=== PATIENT | female | born 1970 | race Caucasian/White ===

== ENCOUNTER 2024-03-07 10:31 | Emergency (ER) | payer BC, SELFPAY ==
--- NOTE | ~2024-03-07 | XR_ITS ---
Clinical Indication: Chest pain PA and lateral views of the chest: Comparison: 11/24/2018 Findings: The lungs are clear, without evidence of focal consolidation or pleural effusion. Cardiome diastinal silhouette is within normal limits. Bones and soft tissues are unremarkable. Impression: Normal chest. Reviewed, dictated and finalized at location . Impression: Normal chest.
--- NOTE | 2024-03-07 10:33 | ECG_ITS ---
Test Date: 2024-03-07 10:36:24 Measurements Intervals [place] Rate: 85 P: 34 DE: 171 QRS: 32 QRSD: 88 T: 37 QT: 349 QTc: 415 Interpretive Statements SINUS RHYTHM CANNOT R/O SEPTAL INFARCT, AGE INDETERMINATE BASELINE ARTIFACT- III, V4-V5 ABNORMAL ECG No previous ECG available for comparison Electronically Signed On 03-07-2024 10:51:24 CDT by Broa Escamilla D.O.
[2024-03-07 10:39] VITALS: BP 133/87; PULSE 82; RESP 17; TEMP 36.4; O2SAT 98
[2024-03-07 10:55] LABS: Basophils Absolute Auto 0.1 K/mm3 (0.0-0.1); Basophils Percent Auto 0.8 % (0.2-1.2); Eosinophils Absolute Auto 0.2 K/mm3 (0-0.3); Eosinophils Percent Auto 2.3 % (0-4.4); Immature Granulocyte Absolute 0.05 K/mm3 (0.00-0.031); Immature Granulocyte Percent A 0.6 % (0-0.5); Lymphocytes Absolute Auto 1.41 K/mm3 (0.9-3.2); Lymphocytes Percent Auto 16.4 % (18.3-44.2); Mean Corpuscular HGB Conc 33.3 g/dl (32-36); Mean Corpuscular Hemoglobin 30.8 pg (26-34); Mean Corpuscular Volume 92.3 fl (80-100); Mean Platelet Volume 9.3 fl (7.4-10.4); Monocytes Absolute Auto 0.5 K/mm3 (0.1-0.6); Monocytes Percent Auto 5.8 % (2.6-8.5); Neutrophils Absolute Auto 6.4 K/mm3 (1.3-6.7); Neutrophils Percent Auto 74.1 % (45.5-73.1); Platelet Count Result 277 k/mm3 (150-375); Red Blood Count 4.55 M/mm3 (4.2-5.4); Red Cell Distribution Width 12.9 % (11.5-14.5); White Blood Count 8.6 K/mm3 (4.5-10.0)
[2024-03-07 11:04] LABS: Alanine Aminotransferase 23 U/L (6-35); Albumin Level 4.5 g/dL (3.5-5.1); Alkaline Phosphatase 131 U/L (38-126); Anion Gap 8 mmol/L (4-12); Aspartate Amino Transferase 21 U/L (14-36); Bilirubin,Total 0.7 mg/dL (0.2-1.3); Blood Urea Nitrogen 18 mg/dL (7-17); Carbon Dioxide 28 mmol/L (22-30); Chloride 103 mmol/L (98-107); Estimated CRCL calculation 84 ml/min; Estimated Glomerular Filt Rate > 60; Glucose 98 mg/dL (65-110); Lipase 41 U/L (23-300); Potassium 4.3 mmol/L (3.4-5.0); Sodium 139 mmol/L (137-145)
[2024-03-07 11:05] LABS: Prothrombin Time 13.9 Seconds (11.1-14.7)
[2024-03-07 11:06] LABS: Partial Thromboplastin Time 24.3 Seconds (22.3-36.8)
[2024-03-07 11:16] LABS: Troponin I < 0.012 ng/mL (0.000-0.034)
[2024-03-07] MEDS: ASPIRIN 81 MG CHEWABLE TABLET 324 MG PO (11:49)
[2024-03-07 11:52] VITALS: O2SAT 97
[2024-03-07 11:54] VITALS: PULSE 77
[2024-03-07 12:03] VITALS: PULSE 79; RESP 21; O2SAT 96
[2024-03-07 12:46] VITALS: BP 106/60; PULSE 70; RESP 16; O2SAT 98
--- NOTE | 2024-03-07 13:50 | ECG_ITS ---
Test Date: 2024-03-07 14:29:50 Measurements Intervals [place] Rate: 70 P: 43 IA: 179 QRS: 26 QRSD: 92 T: 40 QT: 400 QTc: 433 Interpretive Statements SINUS RHYTHM CANNOT R/O SEPTAL INFARCT, AGE INDETERMINATE ABNORMAL ECG Compared to ECG 03/07/2024 10:36:24 No significant changes Electronically Signed On 03-07-2024 17:47:23 CDT by Bora Escamilla D.O.
[2024-03-07 14:36] LABS: Troponin I < 0.012 ng/mL (0.000-0.034)
--- NOTE | 2024-03-07 15:17 | ED.CHESTPAIN ---
HPI - Chest Pain General Chief Complaint: Chest Pain Stated Complaint: CHEST PAIN Time Seen by Provider: 03/07/24 11:23 History of Present Illness HPI narrative: Patient is a 54-year-old female who presents ER with left-sided chest pain. Sudden onset while sitting. Lasted for approximately 40 minutes. No radiation to the neck or back. No nausea or vomiting. No lightheadedness. She reports history of a silent [place] with a normal stress test in the last year. She has never had a cardiac catheterization. Related Data Allergies Allergy/AdvReac Type Severity Reaction Status Date / Time No Known Allergies Allergy Unverified 02/07/22 12:13 Review of Systems Review of Systems: All systems reviewed & are unremarkable except as noted in HPI and below Constitutional: Constitutional: Reports no additional constitutional complaints ENT: Reports system reviewed and no additional complaints, except as documented Cardiovascular: Cardiovascular: Reports chest pain, Denies rapid heart rate and Denies radiating jaw, neck or arm pain Respiratory: Respiratory: Reports no additional respiratory complaints Genitourinary: Genitourinary: Reports no additional female genitourinary complaints [facility] Past Medical History Medical History (Updated 03/07/24 @ 19:19 by Juan Peralta MD) Hyperlipidemia Hypertension Surgical History Surgical History (Updated 03/07/24 @ 19:19 by Juan Peralta MD) No pertinent past surgical history Course Course Emergency Course: Troponin negative x2. Patient chest pain-free. Appropriate for discharge home Vital Signs Vital signs: Vital Signs Temperature 97.5 F L 03/07/24 10:39 Pulse Rate 82 03/07/24 10:39 Respiratory Rate 17 03/07/24 10:39 Blood Pressure 133/87 03/07/24 10:39 Pulse Oximetry 98 03/07/24 10:39 Oxygen Delivery Room Air 03/07/24 10:39 Temperature 97.5 F L 03/07/24 10:39 Pulse Rate 72 03/07/24 15:31 Respiratory Rate 16 03/07/24 15:31 Blood Pressure 113/65 03/07/24 15:31 Pulse Oximetry 97 03/07/24 15:31 Oxygen Delivery Room Air 03/07/24 11:52 MDM - Chest Pain Lab Data 03/07/24 10:47 03/07/24 10:47 Labs: Lab Results 07/15/24 07/15/24 Range/Units 10:47 14:04 WBC 8.6 (4.5-10.0) K/mm3 RBC 4.55 (4.2-5.4) M/mm3 Hgb 14.0 (12.0-15.0) g/dL Hct 42.0 (37.0-47.0) % MCV 92.3 (80-100) fl MCH 30.8 (26-34) pg MCHC 33.3 (32-36) g/dl RDW 12.9 (11.5-14.5) % Plt Count 277 (150-375) k/mm3 MPV 9.3 (7.4-10.4) fl Immature Gran % (Auto) 0.6 H (0-0.5) % Neut % (Auto) 74.1 H (45.5-73.1) % Lymph % (Auto) 16.4 L (18.3-44.2) % [place] % (Auto) 5.8 (2.6-8.5) % Eos % (Auto) 2.3 (0-4.4) % Baso % (Auto) 0.8 (0.2-1.2) % Lymph # (Auto) 1.41 (0.9-3.2) K/mm3 [place] # (Auto) 0.5 (0.1-0.6) K/mm3 Eos # (Auto) 0.2 (0-0.3) K/mm3 Baso # (Auto) 0.1 (0.0-0.1) K/mm3 Abs Immat Gran (auto) 0.05 H (0.00-0.031) K/mm3 Absolute Neuts (auto) 6.4 (1.3-6.7) K/mm3 Absolute Nucleated RBC 0.000 (0.0-0.012) K/mm3 Nucleated RBC % 0.0 (0.0-0.2) % PT 13.9 (11.1-14.7) Seconds INR 1.0 APTT 24.3 (22.3-36.8) Seconds Sodium 139 (137-145) mmol/L Potassium 4.3 (3.4-5.0) mmol/L Chloride 103 (98-107) mmol/L Carbon Dioxide 28 (22-30) mmol/L Anion Gap 8 (4-12) mmol/L BUN 18 H (7-17) mg/dL Creatinine 0.70 (0.7-1.0) mg/dL Estim Creat Clear Calc 84 ml/min Estimated GFR > 60 (59 - ) Glucose 98 (65-110) mg/dL Calcium 9.0 (8.4-10.2) mg/dL Total Bilirubin 0.7 (0.2-1.3) mg/dL AST 21 (14-36) U/L ALT 23 (6-35) U/L Alkaline Phosphatase 131 H (38-126) U/L Troponin I < 0.012 < 0.012 (0.000-0.034) ng/mL Total Protein 7.0 (6.3-8.2) g/dL Albumin 4.5 (3.5-5.1) g/dL Lipase 41 (23-300) U/L Imaging Data Radiologist's impression: ITS Impressions Chest X-Ray 03/07/24 11:39 Impr
[2024-03-07 15:31] VITALS: BP 113/65; PULSE 72; RESP 16; O2SAT 97
== END 2024-03-07 15:33 | disposition home or self-care (01) ==
PROVIDERS: Emergency Provider Emergency Medicine
DX: R07.9 Chest pain, unspecified (principal); R94.31 Abnormal electrocardiogram [ECG] [EKG]
CPT/HCPCS: 36415; 71046; 80053; 83690; 84484; 85025; 85610; 85730; 93005; 99284; A9270